=== PATIENT | female | born 1965 | race Caucasian/White ===

== ENCOUNTER 2020-09-07 23:34 | Emergency (ER) | payer OTHER, SELFPAY ==
[2020-09-07 23:41] VITALS: BP 126/74; BP 134/71; PULSE 66; RESP 18; TEMP 36.6; O2SAT 98; BMI 65.6
[2020-09-07 23:56] VITALS: BP 111/52; PULSE 64; RESP 16; O2SAT 97
[2020-09-08] VITALS: BP 117/70; PULSE 61; RESP 17; TEMP 37; O2SAT 99
--- NOTE | 2020-09-08 | CT_ITS ---
EXAMINATION: CT ABDOMEN AND PELVIS WITHOUT CONTRAST CLINICAL INFORMATION: Abdominal pain made COMPARISON: None TECHNIQUE: Multidetector volumetric imaging was performed from the superior aspect of the liver through the pubic symphysis. Sagittal and coronal reformatted images were obtained on the technologist's workstation. This CT examination was performed using dose optimization techniques as appropriate, variously including the following: *Automated exposure control *Adjustment of mA and/or kV according to patient size (this includes techniques or standardized protocols for targeted exams where dose is matched to indication/reason for exam; i.e. extremities or head) *Use of iterative reconstruction technique DLP: 757 mGy-cm FINDINGS: LUNG BASES: The visualized lung bases are unremarkable. Small amount of fluid in the distal esophagus which is mildly dilated LIVER, GALLBLADDER, AND BILIARY TREE: The liver is normal in size, shape, and attenuation. No focal hepatic lesion or biliary ductal dilatation is present. Status post cholecystectomy PANCREAS: Unremarkable. SPLEEN: Unremarkable. ADRENAL GLANDS: Unremarkable. KIDNEYS AND URETERS: The kidneys are normal in size, shape, and attenuation. No hydronephrosis, hydroureter, or calculi seen. No perinephric stranding. BLADDER: Unremarkable. GASTROINTESTINAL TRACT: Gastric cuff device is present. Connecting tubing is somewhat redundant into the upper pelvis. The bowel pattern is nonobstructing. There is no free fluid. The appendix is normal. Cannot exclude some mild thickening of mucosa small bowel loops in the left mid-upper abdomen ABDOMINAL WALL: No significant hernia is appreciated. LYMPH NODES: Some mildly prominent mesenteric nodes in the left upper quadrant. This may be reflective of enteritis in the adjacent small bowel. VASCULAR: Unremarkable. PELVIC VISCERA: Unremarkable. OSSEOUS STRUCTURES: Unremarkable. IMPRESSION: Mildly prominent mesenteric nodes in left upper quadrant. May be reflective of enteritis in the proximal small bowel. The bowel pattern is however nonobstructing. There is no free fluid.
--- NOTE | 2020-09-08 | ECG_ITS ---
Test Reason : ABD PAIN Blood Pressure : / mmHG Vent. Rate : 067 BPM Atrial Rate : 067 BPM P-R Int : 146 ms QRS Dur : 084 ms QT Int : 422 ms P-R-T Axes : 062 063 042 degrees QTc Int : 445 ms Normal sinus rhythm Cannot rule out Anterior infarct (cited on or before 11-JUL-2015) Abnormal ECG When compared with ECG of 11-JUL-2015 10:22, No significant change was found Referred By: Paul Gomez Electronically Signed By:KATHERYN TOUSSAINT MD
[2020-09-08] MEDS: ondansetron HCL 4 MG/2 ML VIAL IVPUSH ×2 (00:12→01:46)
[2020-09-08] MEDS: Famotidine/PF 20 MG/2 ML VIAL IVPUSH (00:12)
[2020-09-08 00:13] VITALS: RESP 18
[2020-09-08] MEDS: Morphine Sulfate 4 MG/ML CARTRIDGE IVPUSH (00:13)
[2020-09-08] MEDS: 0.9 % Sodium Chloride 1,000 ML 999 ML IVCONT (00:14)
[2020-09-08 00:42] LABS: MANUAL DIFF FLAG NO
[2020-09-08 00:46] LABS: Basophils Absolute Auto 0.1 X10*3/uL (0.0-0.2); Basophils Percent Auto 0.8 % (0-2); Eosinophils Absolute Auto 0.1 X10*3/uL (0.0-0.4); Hematocrit 39.5 % (37-47); Imm Gran Abs Auto 0.04 X10*3/uL (0.00-0.03); Imm Gran Pct Auto 0.6 % (0.0-0.4); Lymphocytes Absolute Auto 2.5 X10*3/uL (1.2-4.9); Lymphocytes Percent Auto 37.3 % (20-40); Mean Corpuscular HGB Conc 32.9 g/dl (31.0-35.0); Mean Corpuscular Hemoglobin 30.4 pg (27.0-33.0); Mean Corpuscular Volume 92.5 fL (80-98); Mean Platelet Volume 9.8 fL (9.4-12.3); Monocytes Absolute Auto 0.4 X10*3/uL (0.1-1.2); Monocytes Percent Auto 6.5 % (2-11); Neutrophils Absolute Auto 3.5 X10*3/uL (2.0-8.3); Neutrophils Percent Auto 52.8 % (45-73); Platelet Count 187 X10*3/uL (160-400); Red Blood Count 4.27 X10*6/uL (4.20-5.50); White Blood Count 6.6 X10*3/uL (4.8-10.8)
[2020-09-08] MEDS: Lidocaine HCl Viscous 2 % 15 ML SOLUTION MUCOUS MEM (00:49)
[2020-09-08] MEDS: Magnesium Hydrox/Alum Hydrox 30 ML ORAL.SUSP PO (00:49)
[2020-09-08 01:26] LABS: Troponin-I High Sensitivity < 3.5 ng/L (<3.5-17.0)
[2020-09-08] MEDS: Ketorolac Tromethamine 30 MG/ML VIAL IVPUSH (01:45)
[2020-09-08] MEDS: PHENobarb/Hyoscy/Atropine/Scop 10 ML ELIXIR PO (01:46)
[2020-09-08 01:47] LABS: Alanine Aminotransferase 29 U/L (0-31); Albumin Level 3.8 g/dL (3.5-5.0); Alkaline Phosphatase 54 U/L (39-117); Anion Gap 10 (12-20); Aspartate Amino Transferase 58 U/L (5-31); Bilirubin Direct 0.2 mg/dL (0.0-0.5); Bilirubin Total 0.4 mg/dL (0.0-1.0); Blood Urea Nitrogen 17 mg/dL (9-16); Calcium 9.1 mg/dL (8.4-10.2); Carbon Dioxide 27 mmol/L (22-29); Chloride 107 mmol/L (96-108); Creatinine Clr Calc Pharmacy 153.2; Estimated Glomerular Filt Rate > 60; Glucose Random 101 mg/dL (60-115); Lipase 19 U/L (8-78); Potassium 4.2 mmol/l (3.3-5.1); Sodium 140 mmol/L (135-145); Total Protein 5.9 g/dL (6.5-8.0)
--- NOTE | 2020-09-08 02:04 | ED.ABDPAIN ---
HPI - Abdominal Pain General Chief Complaint: Abdominal Pain Stated Complaint: SUDDEN ONSET ABD PAIN Time Seen by Provider: 09/07/20 23:40 Source: patient and EMS Mode of arrival: EMS History of Present Illness HPI narrative: mid abdominal pain that started today. Mild nausea without vomiting no diarrhea. No fevers no chills. Patient denies trauma nonradiating epigastric area MD elicited complaint: abdominal pain Onset (ago): hour(s) ( 2 hours) Pain Consistency: constant Severity: moderate Pain scale (0-10): 5 Related Data Patient : No Previous Rx's Medication Instructions Recorded esomeprazole magnesium [Nexium] 40 mg PO DAILY #30 cap 09/08/20 ketorolac 10 mg PO Q8H PRN #20 tab 09/08/20 ondansetron HCl [Zofran] 4 mg PO Q8H PRN #20 tab 09/08/20 tramadol 50 mg PO BID PRN #10 tab 09/08/20 Allergies Allergy/AdvReac Type Severity Reaction Status Date / Time No Known Allergies Allergy Unverified 08/18/20 15:26 Review of Systems Review of Systems Yes all other systems are reviewed and are negative Comments: Constitutional : No Weight loss, No Fever, No Chills, No Night Sweats, No Fatigue, No Malaise ENT/Mouth : No Hearing loss, No Ear Pain, No Nasal Congestion, No Sinus Pain, No Hoarseness, No sore throat, No Rhinorrhea, No Swallowing Difficulty Eyes: No Eye Pain, No Swelling, No Redness, No Foreign Body, No Discharge, No Vision Changes Cardiovascular : No Chest Pain, No SOB, No Dyspnea on Exertion, No Orthopnea, No Edema, No Palpitations Respiratory : No Cough, No Sputum, No Wheezing, No Smoke Exposure, No Dyspnea Gastrointestinal : positive Nausea, No Vomiting, No Diarrhea, No Constipation, positive abdominal Pain, No Hematochezia, No Melena Genitourinary : no irregular bleeding, No Dysuria, No Urinary Frequency, No Hematuria, No Urinary Incontinence, No Urgency, No Flank Pain, No Urinary Flow Changes, No Hesitancy Musculoskeletal : No joint pain, No Myalgias, No Joint Swelling Skin : No Skin Lesions, No rash Neuro : No Weakness, No Numbness, No Paresthesias, No Loss of Consciousness, No Dizziness, No Headache Psych : No Anxiety/Panic, No Depression, No SI/HI/AH/VH, No Social Issues, Heme/Lymph: No Bruising, No Bleeding,No Lymphadenopathy Endocrine : No Polyuria, No Polydipsia, No Temperature Intolerance Physical Exam Vital Signs and I&O and Narrative: Vital Signs and I&O: Vital Signs Temp 98.6 F 09/08/20 00:00 Pulse 62 09/08/20 02:06 Resp 18 09/08/20 02:06 BP 113/62 09/08/20 02:06 Pulse Ox 98 09/08/20 02:06 Intake & Output 09/07/20 09/07/20 09/08/20 06:59 18:59 06:59 Intake Total 1000 / 1000 Balance 1000 / 1000 Weight 190 kg Intake: Intake, IV Amoun t 1000 / 1000 0.9 % Sodium C hloride 1,000 ml 1000 / 1000 @ 999 mls/hr I VCONT .Q1H1M SRUTHI Rx#:[id number] Body Mass Index 65.6 reviewed Const: Other: Appearance: Alert. Oriented X3. No acute distress. Eyes: Pupils equal, round and reactive to light. ENT: Pharynx normal. Neck: Normal inspection. Neck supple. CVS: Normal heart rate and rhythm. Pulses normal. Respiratory: No respiratory distress. Breath sounds normal. Abdomen: Soft and tenderness to left upper and mid. no rigidity no rebound Skin: Skin warm and dry. Normal skin color. Normal skin turgor. Extremities: No lower extremity edema. No lower extremity edema. Neuro: Oriented X 3. No motor deficit. No sensory deficit. General: healthy appearing Course Course Course Narrative: multiple re-examined were done while the patient has been emergency department. Re-examine the abdomen at discharge shows no signs of peritonitis. Tolerating p.o. intake. I discussed with patient I doubt this is acute coronary syndrome. CT scan shows enteritis. Patient aware of discharge instructions follow-up and reasons to return to the emergency department MDM - Abdominal Pain MDM Narrative Medical decision making narrative: 54-year-old female, troponin negative EKG negative CT scan showing enteritis tolerating p.o. intake no signs of peritonitis with discharge Lab Data Attestation: I reviewed the patient's lab results. Result diagrams: 09/08/20 00:35 09/08/20 01:11 Labs: Lab Results 09/08/20 09/08/20 09/08/20 Range/Units 00:35 00:35 00:35 WBC 6.6 (4.8-10.8) X10*3/uL RBC 4.27 (4.20-5.50) X10*6/uL Hgb 13.0 (12.0-16.0) g/dl Hct 39.5 (37-47) % MCV 92.5 (80-98) fL MCH 30.4 (27.0-33.0) pg MCHC 32.9 (31.0-35.0) g/dl RDW 12.0 (11.0-16.0) % Plt Count 187 (160-400) X10*3/uL MPV 9.8 (9.4-12.3) fL Immature Gran % (Auto) 0.6 H (0.0-0.4) % Neut % (Auto) 52.8 (45-73) % Lymph % (Auto) 37.3 (20-40) % Wheeler % (Auto) 6.5 (2-11) % Eos % (Auto) 2.0 (0-4) % Baso % (Auto) 0.8 (0-2) % Lymph # (Auto) 2.5 (1.2-4.9) X10*3/uL Wheeler # (Auto) 0.4 (0.1-1.2) X10*3/uL Eos # (Auto) 0.1 (0.0-0.4) X10*3/uL Baso # (Auto) 0.1 (0.0-0.2) X10*3/uL Abs Immat Gran (auto) 0.04 H (0.00-0.03) X10*3/uL Absolute Neuts (auto) 3.5 (2.0-8.3) X10*3/uL Absolute Nucleated RBC 0.000 (0.0-0.012) X10*3/uL Nucleated RBC % (auto) 0.0 (0.0-0.2) /100WBC Sodium Cancelled Potassium Cancelled Chloride Cancelled Carbon Dioxide Cancelled Anion Gap Cancelled BUN Cancelled Creatinine Cancelled Estim Creat Clear Calc Cancelled Estimated GFR Cancelled Random Glucose Cancelled Calcium Cancelled Total Bilirubin Cancelled Direct Bilirubin Cancelled AST Cancelled ALT Cancelled Alkaline Phosphatase Cancelled Troponin I High Sens < 3.5 (<3.5-17.0) ng/L Total Protein Cancelled Albumin Cancelled Lipase Cancelled 09/08/20 Range/Units 01:11 WBC (4.8-10.8) X10*3/uL RBC (4.20-5.50) X10*6/uL Hgb (12.0-16.0) g/dl Hct (37-47) % MCV (80-98) fL MCH (27.0-33.0) pg MCHC (31.0-35.0) g/dl RDW (11.0-16.0) % Plt Count (160-400) X10*3/uL MPV (9.4-12.3) fL Immature Gran % (Auto) (0.0-0.4) % Neut % (Auto) (45-73) % Lymph % (Auto) (20-40) % Wheeler % (Auto) (2-11) % Eos % (Auto) (0-4) % Baso % (Auto) (0-2) % Lymph # (Auto) (1.2-4.9) X10*3/uL Wheeler # (Auto) (0.1-1.2) X10*3/uL Eos # (Auto) (0.0-0.4) X10*3/uL Baso # (Auto) (0.0-0.2) X10*3/uL Abs Immat Gran (auto) (0.00-0.03) X10*3/uL Absolute Neuts (auto) (2.0-8.3) X10*3/uL Absolute Nucleated RBC (0.0-0.012) X10*3/uL Nucleated RBC % (auto) (0.0-0.2) /100WBC Sodium 140 Potassium 4.2 Chloride 107 Carbon Dioxide 27 Anion Gap 10 L BUN 17 H Creatinine 0.74 Estim Creat Clear Calc 153.2 Estimated GFR > 60 Random Glucose 101 Calcium 9.1 Total Bilirubin 0.4 Direct Bilirubin 0.2 AST 58 H ALT 29 Alkaline Phosphatase 54 Troponin I High Sens (<3.5-17.0) ng/L Total Protein 5.9 L Albumin 3.8 Lipase 19 ECG Data Attestation: I personally reviewed and interpreted this ECG as follows: Interpretation: 67 beats per minute. Normal sinus rhythm. Normal axis. No ST T changes Discharge Plan Discharge Clinical Impression: Enteritis Patient Disposition: Home, Self-Care Instructions: Enteritis (ED) Additional Instructions: Thank you for visiting the emergency department today. If your symptoms worsen or do not resolve completely please return to the emergency department immediately or call 911. if he have any questions please call your primary care physician Prescriptions: New ondansetron HCl [Zofran] 4 mg tablet 4 mg PO Q8H PRN (Reason: nausea and vomiting) Qty: 20 RF: 0 tramadol 50 mg tablet 50 mg PO BID PRN (Reason: pain) Qty: 10 RF: 0 esomeprazole magnesium [Nexium] 40 mg capsule,delayed release(DR/EC) 40 mg PO DAILY Qty: 30 RF: 0 ketorolac 10 mg tablet 10 mg PO Q8H PRN (Reason: pain) Qty: 20 RF: 0 Referrals: [facility] [Provider Group] - 2 days Interventions: ED Discharge Assessment Last Done: 09/08/20 02:33 Discharge Date/Time: 09/08/20 02:34 [facility] Past Medical History Medical History Anxiety GERD (gastroesophageal reflux disease) Surgical History (Updated 09/08/20 @ 02:06 by Paul Gomez DO) H/O bariatric surgery Social History Social History Smoking Status: Current every day smoker Use of substances other than those prescribed or required for medical reasons: No Advance Directives: No Advance Directives Information Provided: No
[2020-09-08 02:06] VITALS: BP 113/62; PULSE 62; RESP 18; O2SAT 98
== END 2020-09-08 02:34 | disposition home or self-care (01) ==
PROVIDERS: Emergency Provider Emergency Medicine; PCP Hospitalist
DX: K52.9 Noninfective gastroenteritis and colitis, unspecified (principal); K21.9 Gastro-esophageal reflux disease without esophagitis; Z98.84 Bariatric surgery status; Z79.899 Other long term (current) drug therapy
CPT/HCPCS: 36415; 74176; 80048; 80076; 83690; 84484; 85025; 93005; 96361; 96374; 96375; 96376; 99284; J2270; J2405

== ENCOUNTER 2024-08-27 08:33 | Outpatient (AMB) | payer OTHER, SELFPAY ==
[2024-08-27 08:38] VITALS: BP 92/60; PULSE 78; O2SAT 96; BMI 34.2
--- NOTE | 2024-08-27 08:38 | A.OFFVIS_ITS ---
Vital Signs 3 08/27/24 08:38 Height 5 ft 6.5 in Weight 214 lb 15.211 oz BMI 34.2 BP 92/60 Blood Pressure Location Lt brachial Position Sitting Pulse 78 Pulse Source Pulse Oximeter Pulse Oximetry (%) 96 Oxygen Delivery Method Room Air Intake Visit Reasons: Abnormal CT Scan Email Developer Required: No Allergies No Known Allergies Allergy (Unverified 08/27/24 08:42) HPI Comments Details: The patient is here for pulmonary evaluation. The patient is a 58 year woman with an abnormal CT scan of the chest. The patient started participating in the lung cancer screening program back in 2020 due to her high risk for cancer because her smoking habits. She is however cut down significantly. She did quit although she states that sometimes she does cheat. We talked about importance about that in quitting altogether. We did review her CT scans of the chest. Apparently back in 2020 she did have areas of tree-in-bud bronchiolitis in the left upper lobe in after that she had a CT scan demonstrating some pneumonitis primarily in the anterior part of her chest bilaterally right more than left. Also demonstrating significant hiatal hernia and she does have a gastric band. Subsequently after that she had another CT scan with other areas involved nodular densities. More recently in July she had a repeat CT scan demonstrating new pulmonary nodules in the right middle lobe area in addition to the lingular area. The nodules are consistent with bronchiolitis. The ground- glass opacities have improved though she still has some areas that are suspicious. The patient also has again the significant amount of dilation of the esophagus concerning about the effects of the lap band. She did follow-up with the surgeon who placed it. It is currently not being used. However, it still looks like there is limited amount of movement. She has a difficulty swallowing. The patient is on her belly and therefore make sense that she is probably having some microaspiration to the lungs aspiration pneumonitis and aspiration bronchiolitis. Will also do additional blood work to assess further etiologies for the bronchiolitis in the pneumonitis but at this point is very apparent that is related to the lap band. The patient will undergo a barium swallow will see the degree of severity. She may need to have the lap band removed because is resulting in worsening respiratory issues at this time. In the meantime the CT scan was read as rads 3. She does participate in the lung cancer screening program at [facility] and she is scheduled to have a repeat CT scan 6 months from the last 1. [facility] Medical History (Updated 08/27/24 @ 08:56 by Scotty Moss MD) Aspiration pneumonitis Hiatal hernia Pulmonary nodules Pneumonitis GERD (gastroesophageal reflux disease) Anxiety Surgical History (Updated 09/08/20 @ 02:06 by Paul Gomez DO) H/O bariatric surgery Social History (Updated 08/27/24 @ 08:43 by Radha Watson Jodi) Patient Tobacco Use Status: Former Tobacco user Review of Systems Const Denies fever(s) ENT Reports dysphagia and Denies nasal congestion Card Denies chest pain Resp Reports change in phlegm color, Reports chest congestion and Reports cough GI Reports dysphagia, Reports early satiety, Reports dyspepsia, Reports heartburn and Reports vomiting Musc Reports no additional complaints Skin/Breast Denies rash Neuro Reports no additional complaints Jayesh/Lymph Reports no additional complaints Physical Exam Vital Signs: Last Vital Signs Pulse 78 08/27/24 08:38 BP 92/60 08/27/24 08:38 Pulse Ox 96 08/27/24 08:38 Oxygen Delivery Method Room Air 08/27/24 08:38 BMI result Body Mass Index 34.2 Const General: comfortable HEENT Head: Yes normocephalic Neck Neck: Yes supple Chest Chest palpation & inspection: normal inspection of the chest Resp Effort & Inspection: normal respiratory effort and prolonged expiratory phase Auscultation: diminished lung sounds Cardio Heart sounds: S1 normal heart sound present and S2 normal heart sound present GI Palpation (GI): Soft to palpation Skin General skin exam: no rashes or lesions noted Extrem General: Yes no clubbing, cyanosis or edema Results Reviewed Results Reviewed: personally reviewed CT chest from 07/2024,12/2023,2022 and 2020 with waxing and waning GGO and tree in bud. dilation of the distal esophagus with air fluid level due to lab ban obstruction. Assessment & Plan Assessment & Plan (1) Pneumonitis: Code(s): J98.4 - Other disorders of lung Category: Medical (2) Pulmonary nodules: Code(s): R91.8 - Other nonspecific abnormal finding of lung field Category: Medical (3) Hiatal hernia: Code(s): K44.9 - Diaphragmatic hernia without obstruction or gangrene Category: Medical (4) Aspiration pneumonitis: Code(s): J69.0 - Pneumonitis due to inhalation of food and vomit Category: Medical Plan bloodwork ODILIA as needed reflux diet sleep with HOB elevated with risers barium swallow sputum culture F/U 6-8 weeks Orders: Orders 2 Complete Blood Count Auto Diff Today J98.4 - Other disorders of lung, R91.8 - Other nonspecific abnormal finding of lung field Basic Metabolic Panel Today J98.4 - Other disorders of lung, R91.8 - Other nonspecific abnormal finding of lung field Immunoglobulins,IgG IgA IgM Today J98.4 - Other disorders of lung, R91.8 - Other nonspecific abnormal finding of lung field Acid-fast Culture + Smear Today J98.4 - Other disorders of lung, R91.8 - Other nonspecific abnormal finding of lung field Immunoglobulin E Today J98.4 - Other disorders of lung, R91.8 - Other nonspecific abnormal finding of lung field Hypersensitive Pneumonitis Prf Today J98.4 - Other disorders of lung, R91.8 - Other nonspecific abnormal finding of lung field Sputum Cult + Gram stain Today J98.4 - Other disorders of lung, R91.8 - Other nonspecific abnormal finding of lung field FL barium swallow Today J69.0 - Pneumonitis due to inhalation of food and vomit, J98.4 - Other disorders of lung, K21.9 - Gastro-esophageal reflux disease without esophagitis, R91.8 - Other nonspecific abnormal finding of lung field Medications: New 2 albuterol sulfate 90 mcg/actuation 2 inhalations inhalation Q6H PRN 18 grams 12RF shortness of breath or wheezing 30 days J44.9 - Chronic obstructive pulmonary disease, unspecified Coding Level of Care Code New Pt Level 5 (91021) Diagnoses Pneumonitis J98.4 Pulmonary nodules R91.8 Hiatal hernia K44.9 Aspiration pneumonitis J69.0 Time Spent (min) 60
== END 2024-08-27 09:07 | disposition home or self-care (01) ==
PROVIDERS: PCP Hospitalist; Visit Provider Hospitalist
DX: J69.0 Pneumonitis due to inhalation of food and vomit (principal); R91.8 Other nonspecific abnormal finding of lung field; J98.4 Other disorders of lung; K44.9 Diaphragmatic hernia without obstruction or gangrene
CPT/HCPCS: 99205

== ENCOUNTER → 2024-08-27 08:33 | Outpatient (BNVA) | payer OTHER, SELFPAY | PROVIDERS: PCP Hospitalist; Visit Provider Hospitalist ==

== ENCOUNTER 2024-11-17 08:15 | Outpatient (REF) | payer OTHER, SELFPAY ==
--- NOTE | ~2024-11-17 | FL_ITS ---
EXAMINATION: XR FLUOROSCOPY UPPER GI WITH AIR CLINICAL INFORMATION: Reflux. History of lap band placement. COMPARISON: None TECHNIQUE: Fluoroscopic air contrast upper GI examination was performed utilizing standard techniques with thin and thick barium and effervescent granules. Numerous spot images were obtained. FINDINGS: Lateral cine images of the oropharynx and hypopharynx demonstrate normal swallow mechanism with normal epiglottic inversion and soft palate elevation. No tracheal penetration, glottic or subglottic aspiration identified. No nasopharyngeal reflux present. Hypopharyngeal structures appear normal without evidence of mass or diverticulum. There was no significant cricopharyngeal achalasia. Dual and single contrast images of the esophagus demonstrate a very patulous esophagus with a normal contour. The esophageal mucosa has a mild granular appearance suggestive of esophagitis. No evidence of stricture, mass, or ulcerations identified. Esophageal peristalsis was normal. A small type I hiatal hernia is present. No significant gastroesophageal reflux was seen during the course of the examination and on reflux views. Dual contrast and single contrast images of the stomach demonstrated a normal contour. A lap band is present, in which the phi angle measures 52 degrees. A high-grade stricture is present in the fundus of the stomach is present due to the presence of the band. The gastric rugal folds have a thickened appearance, suggestive of gastritis. No masses or ulcerations are seen. Contrast freely passed into the gastric antrum and duodenal bulb without delay. Single and air-contrast images of the duodenal bulb demonstrate no abnormality. The duodenal sweep has a normal appearance, course, and mucosal fold appearance. The imaged proximal jejunum has a normal fold pattern and caliber. FLUOROSCOPY TIME: 5 minutes 13 seconds Number of Spot Images: 16 Number of Cine: 13 DOSE AREA PRODUCT: 2436 uGy-m2 (microgray-meter squared) FL/FL barium swallow with air IMPRESSION: 1. Very patulous esophagus 2. Mild granular appearance of the esophageal mucosa, suggestive of esophagitis. 3. Small type I hiatal hernia. 4. Status post placement of a lap band. There is no evidence of slippage of the band. There is a high grade stricture present in the fundus of the stomach due to the presence of the lap band. 5. Thickened appearance of the gastric rugal folds, suggestive of gastritis. This procedure was performed by Edwar Vega PA-C, and supervised by Dr. Mcclellan Electronically signed by: Olaf Mcclellan MD 11/18/2024 04:31 PM [facility]
== END 2024-11-17 08:16 | disposition home or self-care (01) ==
LOC: HO.XRAY 08:15
PROVIDERS: PCP Hospitalist; Visit Provider Hospitalist
DX: K21.9 Gastro-esophageal reflux disease without esophagitis (principal); J69.0 Pneumonitis due to inhalation of food and vomit; J98.4 Other disorders of lung
CPT/HCPCS: 74221

== ENCOUNTER → 2024-11-17 08:17 | Outpatient (BNV) | payer OTHER, SELFPAY | PROVIDERS: PCP Hospitalist; Visit Provider Physician Assistant Surgical | DX: K21.9 Gastro-esophageal reflux disease without esophagitis (principal); Z98.84 Bariatric surgery status | CPT/HCPCS: 74221 ==

== ENCOUNTER 2024-11-20 09:07 | Outpatient (AMB) | payer OTHER, SELFPAY ==
--- NOTE | 2024-11-20 09:11 | A.OFFVIS_ITS ---
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 The patient started participating in the lung cancer screening program back in 2020 due to her high risk for cancer because her smoking habits. She is however cut down significantly. She did quit although she states that sometimes she does cheat. We talked about importance about that in quitting altogether. We did review her CT scans of the chest. Apparently back in 2020 she did have areas of tree-in-bud bronchiolitis in the left upper lobe in after that she had a CT scan demonstrating some pneumonitis primarily in the anterior part of her chest bilaterally right more than left. Also demonstrating significant hiatal hernia and she does have a gastric band. Subsequently after that she had another CT scan with other areas involved nodular densities. More recently in July she had a repeat CT scan demonstrating new pulmonary nodules in the right middle lobe area in addition to the lingular area. The nodules are consistent with bronchiolitis. The ground-glass opacities have improved though she still has some areas that are suspicious. The patient also has again the significant amount of dilation of the esophagus concerning about the effects of the lap band. She did follow-up with the surgeon who placed it. It is currently not being used. However, it still looks like there is limited amount of movement. She has a difficulty swallowing. The patient is on her belly and therefore make sense that she is probably having some microaspiration to the lungs aspiration pneumonitis and aspiration bronchiolitis. Will also do additional blood work to assess further etiologies for the bronchiolitis in the pneumonitis but at this point is very apparent that is related to the lap band. The patient will undergo a barium swallow will see the degree of severity. She may need to have the lap band removed because is resulting in worsening respiratory issues at this time. In the meantime the CT scan was read as rads 3. She does participate in the lung cancer screening program at [facility] and she is scheduled to have a repeat CT scan 6 months from the last 1. 11/20/2024 the patient is here for a pulmonary follow-up visit. Overall she is doing well. She is monitoring closely her reflux disease. The patient cough is improved. She had her barium swallow demonstrating significant disease due to the lap band. I suspicious that the pneumonitis in the bronchiolitis due to micro aspirations. The patient has been trying to get this lap band taken out. Now is resulting in significant disease. Will go ahead refer her to surgery so she can have further discussions about that. In the meantime she still smoking. She is smoking about 8-10 cigarettes a day. We did talk about smoking cessation. She is currently dealing with thyroid conditions so therefore will hold off any smoking cessation medications until her thyroid issues are resolved. Then she can call and I did recommend she start Chantix. She will let me know. In the meantime she is also needs to get blood work. She was not able to get a sputum culture. She needs to make sure she continues to sleep elevated. We did talk about adding risers to the head of the bed. Will follow- up in 6 months. If other issues arise she will call for an earlier assessment. [facility] Medical History (Updated 08/27/24 @ 08:56 by Scotty Moss MD) Aspiration pneumonitis Hiatal hernia Pulmonary nodules Pneumonitis GERD (gastroesophageal reflux disease) Anxiety Surgical History (Updated 11/20/24 @ 09:32 by Scotty Moss MD) Hx of laparoscopic gastric banding H/O bariatric surgery Social History Patient Tobacco Use Status: Former Tobacco user Review of Systems Const Denies fever(s) ENT Reports dysphagia and Denies nasal congestion Card Denies chest pain Resp Reports change in phlegm color, Reports chest congestion and Reports cough GI Reports dysphagia, Reports early satiety, Reports dyspepsia, Reports heartburn and Reports vomiting Musc Reports no additional complaints Skin/Breast Denies rash Neuro Reports no additional complaints Jayesh/Lymph Reports no additional complaints Physical Exam Vital Signs: Last Vital Signs Pulse 81 11/20/24 09:12 BP 90/62 11/20/24 09:12 Pulse Ox 100 11/20/24 09:12 Oxygen Delivery Method Room Air 11/20/24 09:12 BMI result Body Mass Index 33.1 Const General: comfortable HEENT Head: Yes normocephalic Neck Neck: Yes supple Chest Chest palpation & inspection: normal inspection of the chest Resp Effort & Inspection: normal respiratory effort and No prolonged expiratory phase Auscultation: diminished lung sounds Cardio Heart sounds: S1 normal heart sound present and S2 normal heart sound present GI Palpation (GI): Soft to palpation Skin General skin exam: no rashes or lesions noted Extrem General: Yes no clubbing, cyanosis or edema Assessment & Plan Assessment & Plan (1) Pneumonitis: Code(s): J98.4 - Other disorders of lung Category: Medical (2) Pulmonary nodules: Code(s): R91.8 - Other nonspecific abnormal finding of lung field Category: Medical (3) Hiatal hernia: Code(s): K44.9 - Diaphragmatic hernia without obstruction or gangrene Category: Medical (4) Aspiration pneumonitis: Code(s): J69.0 - Pneumonitis due to inhalation of food and vomit Category: Medical (5) Hx of laparoscopic gastric banding: Code(s): Z98.84 - Bariatric surgery status Category: Surgical Plan ODILIA as needed reflux diet sleep with HOB elevated with risers Surgery eval for removal of gastric band F/U 4-6 months Orders: Referrals Bariatric Surgery Referral J98.4 - Other disorders of lung, K44.9 - Diaphragmatic hernia without obstruction or gangrene, Z98.84 - Bariatric surgery status Coding Level of Care Code Est Pt Level 4 (43819) Diagnoses Pneumonitis J98.4 Pulmonary nodules R91.8 Hiatal hernia K44.9 Aspiration pneumonitis J69.0 Hx of laparoscopic gastric banding Z98.84 Time Spent (min) 17
[2024-11-20 09:12] VITALS: BP 90/62; PULSE 81; O2SAT 100; BMI 33.1
== END 2024-11-20 09:37 | disposition home or self-care (01) ==
PROVIDERS: PCP Hospitalist; Visit Provider Hospitalist
DX: J98.4 Other disorders of lung (principal); R91.8 Other nonspecific abnormal finding of lung field; K44.9 Diaphragmatic hernia without obstruction or gangrene; J69.0 Pneumonitis due to inhalation of food and vomit; Z98.84 Bariatric surgery status
CPT/HCPCS: 99214

== ENCOUNTER 2024-12-11 07:49 | Outpatient (AMB) | payer OTHER, SELFPAY ==
--- NOTE | 2024-12-11 07:56 | A.OFFVIS_ITS ---
VS Expanded 12/11/24 08:10 BP 117/67 Blood Pressure Location Rt brachial Blood Pressure Position Sitting Pulse 89 Pulse Source Pulse Oximeter Temp 97.9 F Temperature Source Temporal Artery Scan Pulse Oximetry 97 Oxygen Delivery Method Room Air Height 5 ft 6.5 in Weight 213 lb 6.4 oz BMI 33.9 Body Fat % 42.3 Body Fat Mass 90.2 Fat Free Mass 123.0 Visceral Fat Rating 2.0 Body Water % 41.0 Body Water Mass 87.4 Muscle Mass/Score 116.8 Basal Metabolic Rate/Score 1,697 Intake Visit Reasons: OV Hiatal Hernia- Dr. Moss Ref *SEE COMMENTS* Allergies No Known Allergies Allergy (Verified 12/11/24 12:39) Medication List - Last Reconciled 12/11/24 by Steve Hood MD albuterol sulfate 90 mcg/actuation 2 inhalations inhalation Q6H PRN 30 days clonazepam mg PO esomeprazole magnesium (Nexium) 40 mg PO DAILY levothyroxine 50 mcg PO DAILY HPI Comments Details: Was referred because of her history of the lap band. Complains of frequent vomiting (at least 4 days per week) of undigested food and heartburn. Heartburn has improved with Nexium. Also if she eats late, she develops regurgitation and some time will vomit through the nose. [facility] Medical History (Updated 12/11/24 @ 09:07 by Steve Hood MD) Aspiration pneumonitis Hiatal hernia Pulmonary nodules Pneumonitis GERD (gastroesophageal reflux disease) Anxiety Surgical History (Updated 12/11/24 @ 08:02 by Zuleyka Gomez CMA) Hx of colonoscopy Hx of bladder endoscopy Hx of section Hx of cholecystectomy Hx of laparoscopic gastric banding H/O bariatric surgery Family History (Updated 12/11/24 @ 08:06 by Zuleyka Gomez CMA) Mother Heart problem Father Diabetes Parkinsons Heart problem Daughter No problems noted. Son No problems noted. Daughter No problems noted. Social History (Updated 12/11/24 @ 08:06 by Zuleyka Gomez CMA) Alcohol intake: current Alcohol intake frequency: holidays/special occasions only Patient Tobacco Use Status: Current everyday Tobacco user Cigarettes Per Day: 10 Physical Exam Vital Signs: Last Vital Signs Temp 97.9 F 12/11/24 08:10 Pulse 89 12/11/24 08:10 BP 117/67 12/11/24 08:10 Pulse Ox 97 12/11/24 08:10 Oxygen Delivery Method Room Air 12/11/24 08:10 BMI result Body Mass Index 33.9 GI Inspection: Yes normal to inspection (Gynecoid body habitus), Yes incision (well healed) and Yes other (band port palpated at mid upper abdomen) Assessment & Plan Assessment & Plan (1) Gastric outlet obstruction: Code(s): K31.1 - Adult hypertrophic pyloric stenosis Category: Medical Plan: 1. We discussed in detail the etiology of her symptoms. The band is causing obstruction and this has created aspiration, vomiting, the hiatal hernia and the possibly the lung nodules. The plan is as follows: a) until your vacation please do: 2 Celebrate Rebuild protein shakes with TWO scoops in 8-12oz almond milk at 8-10am and 11-1pm, lunch at 2pm (5 forks of meat or fish and 5 forks of steamed broccoli or cauliflower) and 2 more Celebrate Rebuild protein shakes with one scoop each in 8oz almond milk at 4-6pm and 7- 9pm. b) during vacation, please replace the Celebrate Rebuild with the Isopure Infusions shake to 2 to 1 portions (i.e. 2 scoops of Rebuild = 1 scoop of Isopure), mixing it in water and not almond milk c) Send me weight measurements tomorrow and then weekly d) Strict liquid diet after return from vacation e) To be scheduled 1 week after the liquid diet for EGD to assess for band erosion . The possibility of biopsies was discussed. Patient needs to avoid use of NSAIDs and aspirin for 1 week prior to EGD. You must be on liquids only the day before your endoscopy. Risks of perforation and bleeding was discussed with the patient. This will be an outpatient procedure with IV sedation. f) Plan for lap band removal after the EGD is performed 2) Once the lap band is removed we will continue with the lifestyle program for further weight loss Orders: Orders TSH reflex Free T4 Today K31.1 - Adult hypertrophic pyloric stenosis Vitamin A Today K31.1 - Adult hypertrophic pyloric stenosis Prothrombin Time INR Today K31.1 - Adult hypertrophic pyloric stenosis Vitamin B1 Today K31.1 - Adult hypertrophic pyloric stenosis Vitamin B12 Today K31.1 - Adult hypertrophic pyloric stenosis C Reactive Protein Today K31.1 - Adult hypertrophic pyloric stenosis Vitamin D 25-OH Total Today K31.1 - Adult hypertrophic pyloric stenosis Complete Blood Count Auto Diff Today K31.1 - Adult hypertrophic pyloric stenosis Zinc Today K31.1 - Adult hypertrophic pyloric stenosis IRON PROFILE Today K31.1 - Adult hypertrophic pyloric stenosis Comprehensive Met. Panel Today K31.1 - Adult hypertrophic pyloric stenosis Hemoglobin A1c Today K31.1 - Adult hypertrophic pyloric stenosis Lipid Panel Today K31.1 - Adult hypertrophic pyloric stenosis Type and Screen Today K31.1 - Adult hypertrophic pyloric stenosis Partial Thromboplastin Time Today K31.1 - Adult hypertrophic pyloric stenosis Ferritin Today K31.1 - Adult hypertrophic pyloric stenosis Insulin Today K31.1 - Adult hypertrophic pyloric stenosis
[2024-12-11 08:10] VITALS: BP 117/67; PULSE 89; TEMP 36.6; O2SAT 97; BMI 33.9
== END 2024-12-11 12:57 | disposition home or self-care (01) ==
PROVIDERS: PCP Hospitalist; Visit Provider Surgery
DX: K31.1 Adult hypertrophic pyloric stenosis (principal)
CPT/HCPCS: 99204

== ENCOUNTER 2024-12-12 07:53 | Outpatient (REF) | payer OTHER, SELFPAY ==
[2024-12-12 08:18] LABS: MANUAL DIFF FLAG NO
[2024-12-12 08:35] LABS: Basophils Absolute Auto 0.1 X10*3/uL (0.0-0.2); Basophils Percent Auto 1.6 % (0-2); Eosinophils Absolute Auto 0.1 X10*3/uL (0.0-0.4); Eosinophils Percent Auto 2.5 % (0-4); Hematocrit 40.4 % (37.0-47.0); Hemoglobin 13.8 g/dl (12.0-16.0); Imm Gran Abs Auto 0.01 X10*3/uL (0.00-0.03); Imm Gran Pct Auto 0.2 % (0.0-0.4); Lymphocytes Absolute Auto 2.2 X10*3/uL (1.2-4.9); Lymphocytes Percent Auto 45.5 % (20-40); Mean Corpuscular HGB Conc 34.2 g/dl (31.0-35.0); Mean Corpuscular Volume 90.8 fL (80.0-98.0); Mean Platelet Volume 9.4 fL (9.4-12.3); Monocytes Absolute Auto 0.4 X10*3/uL (0.1-1.2); Monocytes Percent Auto 7.2 % (2-11); Neutrophils Absolute Auto 2.1 x10*3/uL (2.0-8.3); Platelet Count 225 X10*3/uL (160-400); Red Blood Count 4.45 X10*6/uL (4.20-5.50); Red Cell Distribution Width 11.9 % (11.0-16.0); White Blood Count 4.9 X10*3/uL (4.8-10.8)
[2024-12-12 08:42] LABS: INTERNATIONAL NORM RATIO 0.8 (0.9-1.1); Prothrombin Time 9.2 SEC (10.9-12.4)
[2024-12-12 08:44] LABS: Estimated Average Glucose 105 mg/dL; Hemoglobin A1C 125.3419 umol/L; Hemoglobin A1c % 5.3 % (<6.0); Total Hemoglobin (HGBA1C) 3644.0418 umol/L
[2024-12-12 08:45] LABS: Partial Thromboplastin Time 27.2 SEC (26.0-36.8)
[2024-12-12 09:14] LABS: Alanine Aminotransferase 17 U/L (0-31); Alkaline Phosphatase 77 U/L (39-117); Anion Gap 8 (12-20); Aspartate Amino Transferase 22 U/L (5-31); Bilirubin Total 0.3 mg/dL (0.0-1.0); Blood Urea Nitrogen 18 mg/dL (9-16); C Reactive Protein 0.21 mg/dL (< or = 0.50); Calcium 8.3 mg/dL (8.4-10.2); Carbon Dioxide 27 mmol/L (22-29); Chloride 111 mmol/L (96-108); Cholesterol 205 mg/dL (<200); Estimated Glomerular Filt Rate > 60; Glucose Random 92 mg/dL (60-115); HDL Cholesterol 71 mg/dL (>40); Iron 53 mcg/dL (30-160); LDL Cholesterol Calculated 121 mg/dL (<100); Percent Iron Saturation 22 % (15-50); Potassium 4.2 mmol/L (3.3-5.1); Sodium 142 mmol/L (135-145); Total Iron Binding Capacity 241 mcg/dL (228-428); Total Protein 6.8 g/dL (6.5-8.0); Triglycerides 69 mg/dL (<150); Unsaturated Iron Binding 188 ug/dL
[2024-12-12 09:37] LABS: Vitamin B12 538 pg/mL (200-900)
[2024-12-12 09:42] LABS: Ferritin 41 ng/mL (10-250); TSH reflex Free T4 6.62 uIU/mL (0.32-4.0); Vitamin D 25-OH Total 28.9 ng/mL (>30)
[2024-12-12 10:12] LABS: Insulin 7 uU/mL (2-29)
[2024-12-12 11:32] LABS: Free T4 (Free Thyroxine) 1.12 ng/dL (0.71-1.85)
[2024-12-15 17:49] LABS: Zinc 65 mcg/dL (60-130)
[2024-12-16 15:48] LABS: Vitamin A 46 mcg/dL (38-98)
[2024-12-18 06:24] LABS: Vitamin B1 9 nmol/L (8-30)
== END 2024-12-12 07:54 | disposition home or self-care (01) ==
LOC: HO.LAB 07:53
PROVIDERS: PCP Internal Medicine; Visit Provider Surgery
DX: K31.1 Adult hypertrophic pyloric stenosis (principal); Z13.1 Encounter for screening for diabetes mellitus; Z13.29 Encounter for screening for other suspected endocrine disorder; Z13.0 Encounter for screening for diseases of the blood and blood-forming organs and certain disorders involving the immune mechanism
CPT/HCPCS: 36415; 80053; 80061; 82306; 82607; 82728; 83036; 83525; 83540; 84425; 84439; 84443; 84590; 84630; 85025; 85610; 85730; 86140; 86850; 86900; 86901

== ENCOUNTER → 2024-12-14 08:09 | Outpatient (REF) | payer OTHER, SELFPAY ==
--- NOTE | 2024-12-14 08:14 | ECG_ITS ---
Test Reason : Pre Op Blood Pressure : */* mmHG Vent. Rate : 76 BPM Atrial Rate : 76 BPM P-R Int : 132 ms QRS Dur : 84 ms QT Int : 408 ms P-R-T Axes : 63 62 45 degrees QTcB Int : 459 ms Normal sinus rhythm Normal ECG When compared with ECG of 08-Sep-2020 00:29, No significant change was found Referred By: Steve Hood Electronically Signed By: Som Burch
== END ==
LOC: HO.CARD 08:09
PROVIDERS: PCP Internal Medicine; Referring Provider Nurse Practitioner Adult Health; Visit Provider Surgery
DX: Z01.818 Encounter for other preprocedural examination (principal)
CPT/HCPCS: 93005

== ENCOUNTER → 2024-12-14 08:14 | Outpatient (BNV) | payer OTHER, SELFPAY | PROVIDERS: PCP Internal Medicine; Referring Provider Nurse Practitioner Adult Health; Visit Provider Internal Medicine Cardiovascular Disease | DX: Z01.818 Encounter for other preprocedural examination (principal) | CPT/HCPCS: 93010 ==

== ENCOUNTER 2024-12-31 14:45 | Outpatient (AMB) | payer OTHER, SELFPAY ==
--- NOTE | 2024-12-31 15:11 | A.OFFVIS_ITS ---
VS Expanded 12/31/24 16:02 Height 5 ft 6.5 in Weight 207 lb 6 oz BMI 33.0 Body Fat % 28.1 Body Fat Mass 58.3 Fat Free Mass 149.2 Visceral Fat Rating 9 Body Water % 49.3 Body Water Mass 102.3 Basal Metabolic Rate/Score 1,823 Intake Visit Reasons: TV Pre Op LSG 01/14/25 Allergies No Known Allergies Allergy (Verified 12/31/24 15:12) Medication List - Last Reconciled 12/31/24 by Steve Hood MD albuterol sulfate 90 mcg/actuation 2 inhalations inhalation Q6H PRN 30 days cholecalciferol (vitamin D3) 125 mcg PO DAILY clonazepam mg PO esomeprazole magnesium (Nexium) 40 mg PO DAILY levothyroxine 50 mcg PO DAILY ondansetron 4 mg PO Q12H HPI HPI TV Pre Op LSG 01/14/25: Details: Start time: 3pm, End time: 3.20pm I spent 15 minutes discussing with the patient and 5 minutes to prepare my note HPI Comments Details: The patient has persistent GERD and vomiting with the lap band She has now engaged in a meal and exercise plan with me with an overall weight loss of 6.4lbs or 3% TBWL PFSH Medical History (Updated 12/31/24 @ 16:07 by Steve Hood MD) Aspiration pneumonitis Hiatal hernia Pulmonary nodules Pneumonitis GERD (gastroesophageal reflux disease) Anxiety Surgical History (Updated 12/11/24 @ 08:02 by Zuleyka Gomez CMA) Hx of colonoscopy Hx of bladder endoscopy Hx of section Hx of cholecystectomy Hx of laparoscopic gastric banding H/O bariatric surgery Family History (Updated 12/11/24 @ 08:06 by Zuleyka Gomez CMA) Mother Heart problem Father Diabetes Parkinsons Heart problem Daughter No problems noted. Son No problems noted. Daughter No problems noted. Social History (Updated 12/11/24 @ 08:06 by Zuleyka Gomez CMA) Alcohol intake: current Alcohol intake frequency: holidays/special occasions only Patient Tobacco Use Status: Current everyday Tobacco user Cigarettes Per Day: 10 Physical Exam Vital Signs: BMI result Body Mass Index 33.0 Telehealth Telehealth Telehealth Platform: Telephone Location of provider rendering services: practice address Location of patient: address on file Patient Identification confirmed using: Name, : Yes Telehealth method: voice only Patient verbally consented to treatment: Yes Patient verbally consented to billing insurance company: Yes Patient informed of any privacy concerns related to visit: Yes Minutes spent on Phone/Video with Pt.: 20 Assessment & Plan Assessment & Plan (1) Gastric band malfunction: Code(s): K95.09 - Other complications of gastric band procedure Category: Medical Plan: 1) Plan for lap band removal and accessories given her history of chronic vomiting and GERD. The operation will be performed laparoscopically. Usually it is an outpatient procedure. Risks of bleeding, infection, bowel obstructions, respiratory or cardiac complications and VTE were discussed with the patient and she is in agreement with the plan. 2) As of Saturday01/04/25 please stop food and bars and continue with 3 Celebrate Rebuild protein shakes (ONE scoop each in 8oz almond milk) at 7am-9am, 10am-12pm and 1pm-3pm and two more shakes with TWO scoops EACH in 12oz almond milk at 4pm- 6pm and 7pm-9pm. 4) Avoid any aspirin, motrin, ibuprofen, advil, aleve, naproxen, excedrin and meloxicam. You may use Tylenol 5) Continue your medications but do not take any the day of surgery 6) Do your preoperative blood work any day between Saturday01/04/25 and Saturday01/08/25 7) Continue to send me weight measurements weekly 8) To be scheduled for EGD to assess for gastric band erosion. The possibility of biopsies was discussed. Patient needs to avoid use of NSAIDs and aspirin for 1 week prior to EGD. Risks of perforation and bleeding was discussed with the patient. This will be an outpatient procedure with IV sedation. Orders: Orders Type and Screen Today Z01.818 - Encounter for other preprocedural examination Partial Thromboplastin Time Today Z01.818 - Encounter for other preprocedural examination Complete Blood Count Auto Diff Today Z01.818 - Encounter for other preprocedural examination Prothrombin Time INR Today Z01.818 - Encounter for other preprocedural examination Comprehensive Met. Panel Today Z01.818 - Encounter for other preprocedural examination Medications: New ondansetron Only use if you have nausea 4 mg PO Q12H 20 tabs 0RF nausea and vomiting R11.0 - Nausea
[2024-12-31 16:02] VITALS: BMI 33.0
== END 2024-12-31 16:17 | disposition home or self-care (01) ==
LOC: HO.HBS 14:45
PROVIDERS: PCP Internal Medicine; Visit Provider Surgery
DX: K95.09 Other complications of gastric band procedure (principal)
CPT/HCPCS: 99499

== ENCOUNTER → 2024-12-31 14:45 | Outpatient (BNVA) | payer OTHER, SELFPAY | PROVIDERS: PCP Internal Medicine; Visit Provider Surgery ==

== ENCOUNTER 2025-01-05 12:17 | Day surgery (SDC) | payer OTHER, SELFPAY ==
--- NOTE | 2025-01-04 08:50 | HO.ANESPROP2 ---
HPI - Anesthesia Eval Consult details Narrative: 59yo F Upper Endoscopy PMFSH Active Problems Active Problems: All Active Problems Gastric band malfunction (Acute) Preprocedural examination (Acute) Vitamin D deficiency (Acute) Gastric outlet obstruction (Acute) Hx of laparoscopic gastric banding (Acute) Aspiration pneumonitis (Acute) Hiatal hernia (Acute) Pulmonary nodules (Acute) Pneumonitis (Acute) Past Medical History Medical History Aspiration pneumonitis Hiatal hernia Pulmonary nodules Pneumonitis GERD (gastroesophageal reflux disease) Anxiety Family History Family History Mother Heart problem Father Diabetes Parkinsons Heart problem Daughter No problems noted. Son No problems noted. Daughter No problems noted. Surgical History Surgical History Hx of colonoscopy Hx of bladder endoscopy Hx of section Hx of cholecystectomy Hx of laparoscopic gastric banding H/O bariatric surgery Social History Social History Alcohol intake: current Alcohol intake frequency: holidays/special occasions only Patient Tobacco Use Status: Current everyday Tobacco user Tobacco use type: Cigarette Cigarette Packs Per Day: 0.5 Cigarettes Per Day: 10.0 Use of substances other than those prescribed or required for medical reasons: No Advance Directives: No Advance Directives Information Provided: Yes Meds Allergies Allergy/AdvReac Type Severity Reaction Status Date / Time No Known Allergies Allergy Verified 01/05/25 13:24 Home Medications ?Medication ?Instructions ?Recorded ?Confirmed ?Last Taken ?Type clonazepam 1 mg tablet mg PO 08/27/24 12/31/24 Unknown History levothyroxine 50 mcg capsule 50 mcg PO DAILY 12/11/24 01/05/25 Unknown History Assessment and Plan Assessment Anesthesia Assessment: Chart Reviewed
[2025-01-05 13:26] VITALS: BP 127/57; PULSE 64; RESP 16; TEMP 36.6; O2SAT 97; BMI 32.9
[2025-01-05] MEDS: Lactated Ringers 1,000 ML 100 ML IVCONT (13:37)
--- NOTE | 2025-01-05 13:40 | P.HPSUR_ITS ---
Pre-Procedural Eval Section A - 24 Hr Update-Section A only Date of Service: 01/05/25 The patient is an INPATIENT: No The patient has been examined within 24 hours of the surgical procedure. The History & Physical has been completed within 30 days and I have reviewed it.: Yes Section B - Complete if H&P > 30 days Chief Complaint: Lap band malfunction Relevant Family History (Specify if Yes): No Relevant Social History: None Present Medications: None Medical History: No relevant PMH History of Previous Operations: Relevant previous surgery/procedure and date(s) (Lap gastric band) Allergies: Allergies Allergy/AdvReac Type Severity Reaction Status Date / Time No Known Allergies Allergy Verified 01/05/25 13:24 Review of Systems Sugical H&P ROS: Negative: Constitution, Cardiovascular, Respiratory, Neurolo gical, Psychiatric, Hem-Onc, Allergic/Immunologic, Gastrointestinal, Genitourinary, Musculoskeletal, Integumentary, Endocrine and Eyes/Ears/Nose/Throat Exam Surgical H&P Exam: Normal: HEENT, Normal: Heart, Normal: Lungs, Normal: Extremities, Normal: Abdomen, Normal: Skin and Normal: Neurological Plan Diagnosis/Plan: Unchanged (EGD to assess etiology of GERD and to rule band erosion. Risks of bleeding and perforation were discussed with the patient and she is in agreement with the plan.) I have reviewed the history and physical and performed a pertinent physical examination on my patient. No changes have occurred unless specified. Time Spent With Patient Time: Total time managing care of this patient today ____ minutes.
--- NOTE | 2025-01-05 13:45 | P.BOP_ITS ---
Brief Operative Note Date of Service: 01/05/25 Pre-op diagnosis: Gastric band malfunction Post-op diagnosis: same Procedure: PREOPERATIVE DIAGNOSIS: GERD, nausea/vomiting, s/p lap band POSTOPERATIVE DIAGNOSIS: ?Same as above. Gastric band prolapse PROCEDURE: [id number] with biopsies Surgeon: ?Clarence Hood M.D.. Ph.D. Studio Operations Manager: None ? Anesthesia: IV sedation Estimated blood loss: ?Minimal FINDINGS AND PROCEDURE: ? OPERATIVE INDICATIONS: ?The patient is a 59 year old female known to me who underwent a laparoscopic gastric band elsewhere. The patient had insufficient weight loss so far and has been complaining of GERD. Based on this information I recommended an upper endoscopy to evaluate the patient's symptoms and rule out band erosion before we remove the lap band. Risks and complications of the surgery were discussed with the patient in advance particularly the possibility of perforation or bleeding that may require surgical intervention. The patient understood the risks and was in agreement with the plan. ? PROCEDURE: After informed consent was obtained by the patient, the patient was ?transferred to the Operating Room and was placed in the supine position.? After successful induction of IV sedation, a mouth block was inserted and the patient was placed in the left lateral decubitus position. An upper endoscopy was performed next, the oropharynx and esophagus appeared within the normal limits. There was no hiatal hernia. The z-line was smooth.? The stomach was entered and it appeared to be of normal size. There was no band erosion, ?gastritis and no ulcer. The band however seens to be in a position lower than it should or the pouch over the band has significantly dilated from chronic obstruction. The scope was advanced into the duodenum which appeared to be normal as well. Retroflexion was performed and again no band erosion was seen. At that point the duodenum and the stomach were decompressed and the scope was withdrawn from the patient's mouth. The patient was awaken and was transferred in stable condition to the Recovery Room for further care. I was present and performed all steps of the procedure. There were no residents to assist with this case. Clarence Hood M.D., Ph.D. Surgeon: Steve Hood MD Anesthesia: MAC Was an Studio Operations Manager used for this Procedure?: No Estimated blood loss (mL): 0 IV fluids (mL): 400 Urine output (mL): 0 (No [place] to record output) Pathology: other (1) GE junction x2 2) Distal esophagus x2 3) Proximal stomach x1 4) Distal antrum x1) Condition: stable Disposition: PACU
[2025-01-05 14:20] VITALS: BP 113/65; PULSE 79; RESP 18; TEMP 36.2; O2SAT 96
[2025-01-05 14:32] VITALS: BP 108/59; PULSE 71; RESP 18; TEMP 36.7; O2SAT 99
[2025-01-05 14:47] VITALS: BP 117/67; PULSE 63; RESP 18; O2SAT 99
== END 2025-01-05 15:09 | disposition home or self-care (01) ==
PROVIDERS: PCP Internal Medicine; Visit Provider Surgery
PROC: 0DJ08ZZ Inspection of Upper Intestinal Tract, Via Natural or Artificial Opening Endoscopic (ICD-10-PCS; CPT 43235; principal; 2025-01-05 13:50)
DX: K95.09 Other complications of gastric band procedure (principal); K21.9 Gastro-esophageal reflux disease without esophagitis; R11.2 Nausea with vomiting, unspecified; K44.9 Diaphragmatic hernia without obstruction or gangrene; F41.9 Anxiety disorder, unspecified; R91.8 Other nonspecific abnormal finding of lung field; J69.0 Pneumonitis due to inhalation of food and vomit; Z79.899 Other long term (current) drug therapy; Z90.49 Acquired absence of other specified parts of digestive tract; Z98.84 Bariatric surgery status; F17.210 Nicotine dependence, cigarettes, uncomplicated
CPT/HCPCS: 43239; 88305; J2003; J2250; J2704

== ENCOUNTER 2025-01-14 08:43 | Day surgery (SDC) | payer OTHER, SELFPAY ==
[2025-01-04 09:44] LABS: MANUAL DIFF FLAG NO
[2025-01-04 10:37] LABS: Basophils Absolute Auto 0.1 X10*3/uL (0.0-0.2); Basophils Percent Auto 1.3 % (0-2); Eosinophils Absolute Auto 0.1 X10*3/uL (0.0-0.4); Eosinophils Percent Auto 1.1 % (0-4); Hematocrit 39.9 % (37.0-47.0); Hemoglobin 13.6 g/dl (12.0-16.0); Imm Gran Abs Auto 0.01 X10*3/uL (0.00-0.03); Imm Gran Pct Auto 0.2 % (0.0-0.4); Lymphocytes Absolute Auto 1.6 X10*3/uL (1.2-4.9); Lymphocytes Percent Auto 34.8 % (20-40); Mean Corpuscular HGB Conc 34.1 g/dl (31.0-35.0); Mean Corpuscular Hemoglobin 30.4 pg (27.0-33.0); Mean Corpuscular Volume 89.3 fL (80.0-98.0); Mean Platelet Volume 10.1 fL (9.4-12.3); Monocytes Absolute Auto 0.3 X10*3/uL (0.1-1.2); Monocytes Percent Auto 6.7 % (2-11); Neutrophils Absolute Auto 2.6 x10*3/uL (2.0-8.3); Neutrophils Percent Auto 55.9 % (45-73); Platelet Count 241 X10*3/uL (160-400); Red Blood Count 4.47 X10*6/uL (4.20-5.50); Red Cell Distribution Width 11.6 % (11.0-16.0); White Blood Count 4.6 X10*3/uL (4.8-10.8)
[2025-01-04 10:47] LABS: INTERNATIONAL NORM RATIO 0.9 (0.9-1.1); Prothrombin Time 10.1 SEC (10.9-12.4)
[2025-01-04 13:09] LABS: Alanine Aminotransferase 23 U/L (0-31); Albumin Level 4.2 g/dL (3.5-5.0); Alkaline Phosphatase 63 U/L (39-117); Anion Gap 14 (12-20); Aspartate Amino Transferase 27 U/L (5-31); Bilirubin Total 0.5 mg/dL (0.0-1.0); Blood Urea Nitrogen 15 mg/dL (9-16); Calcium 9.3 mg/dL (8.4-10.2); Carbon Dioxide 26 mmol/L (22-29); Chloride 105 mmol/L (96-108); Estimated Glomerular Filt Rate > 60; Glucose Random 91 mg/dL (60-115); Sodium 141 mmol/L (135-145); Total Protein 7.3 g/dL (6.5-8.0)
[2025-01-12 12:00] VITALS: BMI 32.9
--- NOTE | 2025-01-13 08:49 | P.CONAN_ITS ---
Documented by User: Alessandra Goodman NP 01/13/25 08:51 HPI - Anesthesia Eval Consult details Narrative: 59yo F for PMFSH Active Problems Active Problems: All Active Problems Gastric band malfunction (Acute) Preprocedural examination (Acute) Vitamin D deficiency (Acute) Gastric outlet obstruction (Acute) Hx of laparoscopic gastric banding (Acute) Aspiration pneumonitis (Acute) Hiatal hernia (Acute) Pulmonary nodules (Acute) Pneumonitis (Acute) Past Medical History Medical History delivery delivered Aspiration pneumonitis Hiatal hernia Pulmonary nodules Pneumonitis GERD (gastroesophageal reflux disease) Anxiety Family History Family History Mother Heart problem Father Diabetes Parkinsons Heart problem Daughter No problems noted. Son No problems noted. Daughter No problems noted. Surgical History Surgical History Hx of colonoscopy Hx of bladder endoscopy Hx of section Hx of cholecystectomy Hx of laparoscopic gastric banding H/O bariatric surgery Social History Social History Alcohol intake: current Alcohol intake frequency: holidays/special occasions only Patient Tobacco Use Status: Current everyday Tobacco user Tobacco use type: Cigarette Cigarette Packs Per Day: 0.5 Cigarettes Per Day: 10 Meds Allergies Allergy/AdvReac Type Severity Reaction Status Date / Time No Known Allergies Allergy Verified 01/05/25 13:24 Home Medications ?Medication ?Instructions ?Recorded ?Confirmed ?Last Taken ?Type clonazepam 1 mg tablet mg PO 08/27/24 12/31/24 Unknown History levothyroxine 50 mcg capsule 50 mcg PO DAILY 12/11/24 01/05/25 Unknown History Exam Height,Weight and Vital Signs: Height 5 ft 6.5 in Weight 93.894 kg Pertinent Lab Results Pertinent Lab Results: Laboratory Tests 01/04/25 01/04/25 09:40 09:43 WBC 4.6 L RBC 4.47 Hgb 13.6 Hct 39.9 MCV 89.3 MCH 30.4 MCHC 34.1 RDW 11.6 Plt Count 241 MPV 10.1 Immature Gran % (Auto) 0.2 Neut % (Auto) 55.9 Lymph % (Auto) 34.8 [place] % (Auto) 6.7 Eos % (Auto) 1.1 Baso % (Auto) 1.3 Lymph # (Auto) 1.6 [place] # (Auto) 0.3 Eos # (Auto) 0.1 Baso # (Auto) 0.1 Abs Immat Gran (auto) 0.01 Absolute Neuts (auto) 2.6 Absolute Nucleated RBC 0.000 Nucleated RBC % (auto) 0.0 PT 10.1 L INR 0.9 APTT 28.0 Sodium 141 Potassium 4.0 Chloride 105 Carbon Dioxide 26 Anion Gap 14 BUN 15 Creatinine 0.75 Estim Creat Clear Calc TNP Estimated GFR > 60 Random Glucose 91 Calcium 9.3 D Total Bilirubin 0.5 AST 27 ALT 23 Alkaline Phosphatase 63 Total Protein 7.3 Albumin 4.2 Blood Type B Positive Antibody Screen NEGATIVE Narrative Narrative: EKG 12/2024 Vent. Rate : 76 BPM Atrial Rate : 76 BPM P-R Int : 132 ms QRS Dur : 84 ms QT Int : 408 ms P-R-T Axes : 63 62 45 degrees QTcB Int : 459 ms Normal sinus rhythm Normal ECG When compared with ECG of 08-Sep-2020 00:29, No significant change was found [place] barium swallow with air 11/2024 IMPRESSION: 1. Very patulous esophagus 2. Mild granular appearance of the esophageal mucosa, suggestive of esophagitis. 3. Small type I hiatal hernia. 4. Status post placement of a lap band. There is no evidence of slippage of the band. There is a high grade stricture present in the fundus of the stomach due to the presence of the lap band. 5. Thickened appearance of the gastric rugal folds, suggestive of gastritis. Assessment and Plan Assessment Anesthesia Assessment: Chart Reviewed Documented by User: Chani Saleh MD 01/14/25 13:24 HPI - Anesthesia Eval Consult details Narrative: 59yo F for Laparoscopic Lap band removal PMFSH Active Problems Active Problems: All Active Problems Gastric band malfunction (Acute) Preprocedural examination (Acute) Vitamin D deficiency (Acute) Gastric outlet obstruction (Acute) Hx of laparoscopic gastric banding (Acute) Aspiration pneumonitis (Acute) Hiatal hernia (Acute) Pulmonary nodules (Acute) Pneumonitis (Acute) Smoker. Last cigarette 2 days ago Past Medical History Medical History delivery delivered Aspiration pneumonitis Hiatal hernia Pulmonary nodules Pneumonitis GERD (gastroesophageal reflux disease) Anxiety Family History Family History Mother Heart problem Father Diabetes Parkinsons Heart problem Daughter No problems noted. Son No problems noted. Daughter No problems noted. Family history of problems with anesthesia: No Surgical History Surgical History Hx of colonoscopy Hx of bladder endoscopy Hx of section Hx of cholecystectomy Hx of laparoscopic gastric banding H/O bariatric surgery History of Problems with Anesthesia: No Social History Social History Alcohol intake: current Alcohol intake frequency: holidays/special occasions only Patient Tobacco Use Status: Current everyday Tobacco user Tobacco use type: Cigarette Cigarette Packs Per Day: 0.5 Cigarettes Per Day: 10 Meds Allergies Allergy/AdvReac Type Severity Reaction Status Date / Time No Known Allergies Allergy Verified 01/05/25 13:24 Home Medications ?Medication ?Instructions ?Recorded ?Confirmed ?Last Taken ?Type clonazepam 1 mg tablet mg PO 08/27/24 12/31/24 Unknown History levothyroxine 50 mcg capsule 50 mcg PO DAILY 12/11/24 01/05/25 Unknown History Exam Height,Weight and Vital Signs: Height 5 ft 6.5 in Weight 93.894 kg Vital Signs Temp Pulse Resp BP Pulse Ox O2 Del Method 01/14/25 10:05 98.0 F 69 16 97/59 L 97 Room Air Airway Mallampati Class: II TM Dist: >3cm Neck ROM: Full Loose/Missing/Broken Teeth: Yes (Missing some molars. Denies broken or loose teeth) Heart: RRR Lungs: CTAB Assessment and Plan Assessment Anesthesia Assessment: Anesthesia Plan Discussed and Chart Reviewed Final Anesthetic Review Family History of Problems with Anesthesia: No History of Problems with Anesthesia: No NPO: Yes ASA Class: II Final Preanesthetic Review: No Changes in Pt Med Stat, Meds/Allgs Chart Reviewed, Consent Obtained/Reviewed and Anes Risks/Benef Reviewed Patient Risk: Intermediate Procedure Risk: Intermediate Assessment/Block/Sedation in SS: Assess/Block/Sedation-SS Anesthetic Plan Anesthetic Plan: GA Disposition: Standard PACU
[2025-01-14] VITALS (14 sets, daily range): BP systolic 97–140; BP diastolic 58–76; PULSE 56–71; RESP 16–18; TEMP 36.7–36.8; O2SAT 92–100; BMI 32.2
[2025-01-14] MEDS: Aprepitant 32 MG/4.4 ML VIAL IVPUSH (10:26)
[2025-01-14] MEDS: Lactated Ringers 1,000 ML 100 ML IVCONT (10:26)
--- NOTE | 2025-01-14 11:22 | P.HPSUR_ITS ---
Pre-Procedural Eval Section A - 24 Hr Update-Section A only Date of Service: 01/14/25 The patient is an INPATIENT: No The patient has been examined within 24 hours of the surgical procedure. The History & Physical has been completed within 30 days and I have reviewed it.: Yes Section B - Complete if H&P > 30 days Chief Complaint: Lap band malfunction Relevant Family History (Specify if Yes): No Relevant Social History: None Present Medications: None Medical History: No relevant PMH History of Previous Operations: Relevant previous surgery/procedure and date(s) (Lap band procedure) Allergies: Allergies Allergy/AdvReac Type Severity Reaction Status Date / Time No Known Allergies Allergy Verified 01/05/25 13:24 Review of Systems Sugical H&P ROS: Negative: Constitution, Cardiovascular, Respiratory, Neuro logical, Psychiatric, Hem-Onc, Allergic/Immunologic, Gastrointestinal, Genitourinary, Musculoskeletal, Integumentary, Endocrine and Eyes/Ears/Nose/Throat Exam Surgical H&P Exam: Normal: HEENT, Normal: Heart, Normal: Lungs, Normal: Extremities, Normal: Abdomen, Normal: Skin and Normal: Neurological Plan Diagnosis/Plan: Unchanged I have reviewed the history and physical and performed a pertinent physical examination on my patient. No changes have occurred unless specified. Time Spent With Patient Time: Total time managing care of this patient today ____ minutes.
--- NOTE | 2025-01-14 11:26 | P.BOP_ITS ---
Brief Operative Note Date of Service: 01/14/25 Pre-op diagnosis: Lap band malfunction Post-op diagnosis: same Procedure: PROCEDURE: Esophago-gastroscopy, laparoscopic lysis of adhesions, laparoscopic band removal and accessories INDICATIONS: This is a 59 year-old female with a BMI of 33.9 kg/m2 and associated comorbid conditions as described previously. The patient has been experiencing frequent episodes of vomiting and food intolerance. As a result, the patient was electively scheduled for laparoscopic, possibly open gastric band removal. The risks and complications of the procedure were discussed with the patient in advance, particularly the possibility of ; pulmonary embolism; infection, gastric leak, bleeding; GERD; cardiac, pulmonary, or renal complications. The patient understood all the risks, and was in agreement to angie sepulveda with surgery. DESCRIPTION OF PROCEDURE: After informed consent was obtained from the patient, the patient was given preoperative antibiotics, and was transferred to the operating room. After s uccessful induction of general anesthesia, pneumatic compressive devices were placed on both lower extremities. An upper endoscopy was performed next. The oropharynx and esophagus appeared to be within normal limits. There was no diaphragmatic hernia present. The stomach was entered. Then after all fluid and air were suctioned and the stomach was fully decompressed, the scope was withdrawn and secured in the mid esophagus. The patient was then prepped and draped in the usual sterile manner, and abdominal access was established at the right upper quadrant with the Gonzales technique. A 12 mm blunt port was inserted, and the abdomen was insufflated with CO2 to a pressure of 15 mmHg. Under direct visualization, additional ports were placed, specifically two 5 mm Versi-step ports to the left upper quadrant, and a 5 mm Versi-Step port to the right upper quadrant. 1% lidocained plan was used to infiltrate all port sites as well as all fascia defects. Following that, the patient was placed in a steep reverse Trendelenburg position. An additional 5 mm port was placed to the right flank for the Mediflex retractor that was used to retract the left lobe of the liver. There were adhesions in the abdomen from previous lap band involving the stomach and the undersurface of the left lobe of the liver. Those were lysed completely with the ultrasonic device. The patient has a lap gastric band. It was identified and using the Thunderbeat, the capsule was opened and the band was freed from surrounding tissues. Once it was adequately mobile, it was cut and was removed from the Gonzales port along with the intra-abdominal portion of the tubing system. This was quite difficult as the tubing system was embedded in the liver capsule. ?An upper endoscopy was performed. There was no narrowing at the GE junction. The scope was easily advanced all the way to the pylorus which was clearly visualized. There was no narrowing anywhere. There was no evidence of ischemia, bleeding or dehiscence. At that point the gastroscope was withdrawn from the patient?s mouth while we were decompressing the bowel and the stomach from any remaining air. There was no bleeding from the liver, spleen, or short gastric vessels. The Mediflex retractor was removed, and the undersurface of the liver was inspected and there was no bleeding. The patient was placed in supine position. The band's port was removed from the same incision I made for the Gonzales port. Using cautery the subcutaneous tissues were divided until the port was identified. The sutures were cut. The remaining tubing system was delivered first and then slowly the four hooks were detached from the fascia and the port with tubing system were retrieved intact. I closed the fascial defect of the 12 mm port site with a figure of eight #1 Polysorb suture. Then 30cc Ropivacaine plain with 10 mg of Dexamethasone were used to infiltrate the fascial closure as well as all skin incisions. At this point, the abdomen was deflated, all ports were removed under direct vision, and no bleeding was noted from any of the port sites. The skin incisions were irrigated with saline and were closed with 4-0 absorbable monofilament sutures. Steri-Strips and OpSites were used to cover all incisions. The patient was extubated and was transferred in stable condition to the recovery room for further care. I was present and performed all hollis parts of the procedure. Margaret Kaur was the airline pilot/first officer. There were no residents to assist with this case. Clarence Hood MD, PhD, FACS Surgeon: Steve Hood MD Anesthesia: GETA, local and other (TAP block) Was an City Sanitarian used for this Procedure?: No City Sanitarian: Paige Kaur Estimated blood loss (mL): 50 IV fluids (mL): 2,000 Urine output (mL): 0 (No Beverly to record output) Pathology: other (Gastric band, tubing and port) Condition: stable Disposition: PACU
[2025-01-14] MEDS: Haloperidol Lactate 5 MG/ML VIAL 1 MG IVPUSH (14:22)
[2025-01-14] MEDS: droPERidol 5 MG/2 ML VIAL 0.625 MG IVPUSH (15:03)
[2025-01-14] MEDS: HYDROmorphone HCl 0.5 MG/0.5 ML SYRINGE 0.25 MG IVPUSH ×4 (15:05→15:40)
== END 2025-01-14 16:00 | disposition home or self-care (01) ==
PROVIDERS: PCP Internal Medicine; Visit Provider Surgery
PROC: (CPT 43774; principal; 2025-01-14 11:40)
DX: K95.09 Other complications of gastric band procedure (principal); K91.0 Vomiting following gastrointestinal surgery; K90.49 Malabsorption due to intolerance, not elsewhere classified; K66.0 Peritoneal adhesions (postprocedural) (postinfection); Y83.8 Other surgical procedures as the cause of abnormal reaction of the patient, or of later complication, without mention of misadventure at the time of the procedure; Y73.8 Miscellaneous gastroenterology and urology devices associated with adverse incidents, not elsewhere classified; F41.9 Anxiety disorder, unspecified; R91.8 Other nonspecific abnormal finding of lung field; Z79.899 Other long term (current) drug therapy; Z98.84 Bariatric surgery status; F17.210 Nicotine dependence, cigarettes, uncomplicated
CPT/HCPCS: 43774; 36415; 80053; 85025; 85610; 85730; 86850; 86900; 86901; 88300; C9145; J0131; J0690; J0737; J1100; J1171; J1630; J1790; J2003; J2250; J2371; J2405; J2704; J2795; J3010

== ENCOUNTER → 2025-01-14 08:43 | Outpatient (BNV) | payer OTHER, SELFPAY | PROVIDERS: PCP Internal Medicine; Visit Provider Surgery | DX: K95.09 Other complications of gastric band procedure (principal); K31.1 Adult hypertrophic pyloric stenosis | CPT/HCPCS: 43774 ==

== ENCOUNTER → 2025-01-20 08:45 | Outpatient (BNVA) | payer OTHER, SELFPAY | PROVIDERS: PCP Internal Medicine; Visit Provider Physician Assistant Surgical ==

== ENCOUNTER 2025-01-20 08:54 | Outpatient (AMB) | payer OTHER, SELFPAY ==
--- NOTE | 2025-01-20 08:46 | A.OFFVIS_ITS ---
VS Expanded 01/20/25 08:50 BP 127/57 L Blood Pressure Location Rt brachial Blood Pressure Position Sitting Pulse 81 Pulse Source Pulse Oximeter Temp 97.2 F Temperature Source Temporal Artery Scan Pulse Oximetry 95 Oxygen Delivery Method Room Air Height 5 ft 6.5 in Weight 202 lb 9.6 oz BMI 32.2 Intake Visit Reasons: OV PO LSG 01/14/25 Allergies No Known Allergies Allergy (Verified 01/20/25 08:51) HPI Comments Details: Patient is a pleasant 59-year-old female who is 6 days post lap band removal performed on 01/14/2025. She reports overall doing well. She has been tolerating her meal plan as directed by Dr. Hood. She has been wearing her abdominal binder. She has moved her bowels. Denies any significant complaints at today's appointment. [facility] Medical History delivery delivered Aspiration pneumonitis Hiatal hernia Pulmonary nodules Pneumonitis GERD (gastroesophageal reflux disease) Anxiety Surgical History Hx of colonoscopy Hx of bladder endoscopy Hx of section Hx of cholecystectomy Hx of laparoscopic gastric banding H/O bariatric surgery Family History Mother Heart problem Father Diabetes Parkinsons Heart problem Daughter No problems noted. Son No problems noted. Daughter No problems noted. Social History Alcohol intake: current Alcohol intake frequency: holidays/special occasions only Patient Tobacco Use Status: Current everyday Tobacco user Tobacco use type: Cigarette Cigarette Packs Per Day: 0.5 Cigarettes Per Day: 10 Physical Exam Vital Signs: Last Vital Signs Temp 97.2 F 01/20/25 08:50 Pulse 81 01/20/25 08:50 BP 127/57 L 01/20/25 08:50 Pulse Ox 95 01/20/25 08:50 Oxygen Delivery Method Room Air 01/20/25 08:50 BMI result Body Mass Index 32.2 GI Inspection: Yes incision (Clean, dry, intact.) Assessment & Plan Assessment & Plan (1) Hx of laparoscopic gastric banding: Code(s): Z98.84 - Bariatric surgery status Category: Surgical Plan: Status post removal of gastric band performed on 01/14/2025. She will continue to communicate with Dr. Hood. Continue her meal plan. Discussed the importance of consistent exercise. She has been using her walking pad during the day and does have a treadmill in her basement. Recommend speed of 3.2 with an incline of 0-5 or 6. Goal is burning 300 calories or more per day. Return to clinic 1 month.
[2025-01-20 08:50] VITALS: BP 127/57; PULSE 81; TEMP 36.2; O2SAT 95; BMI 32.2
== END 2025-01-20 09:14 | disposition home or self-care (01) ==
PROVIDERS: PCP Internal Medicine; Visit Provider Physician Assistant Surgical
DX: Z98.84 Bariatric surgery status (principal)
CPT/HCPCS: 99024

== ENCOUNTER 2025-02-22 08:44 | Outpatient (AMB) | payer OTHER, SELFPAY ==
--- NOTE | 2025-02-22 08:53 | A.OFFVIS_ITS ---
VS Expanded 02/22/25 08:54 BP 110/62 Blood Pressure Location Rt brachial Blood Pressure Position Sitting Pulse 86 Pulse Source Pulse Oximeter Temp 96.7 F L Temperature Source Temporal Artery Scan Pulse Oximetry 97 Oxygen Delivery Method Room Air Height 5 ft 6.5 in Weight 216 lb 6 oz BMI 34.4 Body Fat % 36 Body Fat Mass 59 Fat Free Mass 105.2 Visceral Fat Rating 9. Body Water % 45.4 Body Water Mass 74.6 Muscle Mass/Score 99.8 Basal Metabolic Rate/Score 1,429 Intake Visit Reasons: OV Lap Band Removal 01/14/25 Photograph Editor Required: No Allergies No Known Allergies Allergy (Verified 02/22/25 08:52) Medication List - Last Reconciled 02/22/25 by RALPH Rosas cholecalciferol (vitamin D3) 125 mcg PO DAILY clonazepam 1 mg PO PRN esomeprazole magnesium (Nexium) 40 mg PO DAILY levothyroxine 75 mcg PO DAILY HPI Comments Details: Patient is a pleasant 59-year-old female who returns to the office today in follow-up. She is approximately 1 month post lap band removal on 01/14/2025. Weight today is 216.6 lb with a BMI of 34.4. She states it is unless being seen, she experienced emotional trauma as her fiance relapsed and she broke off the engagement. She did turned to food as a source of comfort. She has since reconnected in has been talking with her behavioral health therapist. She additionally recently bought shakes and bars to now adhere to a more structured meal plan and exercise plan. She has not been following the meal plan for the last 2.5 weeks Meal plan: Celebrate rebuild, food Exercise plan: walking treadmill or outside. treadmill at home none in the last 2-3 weeks [facility] Medical History delivery delivered Aspiration pneumonitis Hiatal hernia Pulmonary nodules Pneumonitis GERD (gastroesophageal reflux disease) Anxiety Surgical History Hx of colonoscopy Hx of bladder endoscopy Hx of section Hx of cholecystectomy Hx of laparoscopic gastric banding H/O bariatric surgery Family History Mother Heart problem Father Diabetes Parkinsons Heart problem Daughter No problems noted. Son No problems noted. Daughter No problems noted. Social History Alcohol intake: current Alcohol intake frequency: holidays/special occasions only Patient Tobacco Use Status: Current everyday Tobacco user Tobacco use type: Cigarette Cigarette Packs Per Day: 0.5 Cigarettes Per Day: 10 Physical Exam Vital Signs: Last Vital Signs Temp 96.7 F L 02/22/25 08:54 GI Inspection: Yes incision (Clean, dry, intact.) Assessment & Plan Assessment & Plan (1) Gastric band malfunction: Code(s): K95.09 - Other complications of gastric band procedure Category: Medical Plan: Patient had a setback as she experienced emotional trauma. She is texting with Dr. Hood and will get a new meal plan. She has been encouraged to resume her exercise routine. She will continue to communicate with her behavioral health therapist. We will have her return to the office in a proximally 3-4 weeks.
[2025-02-22 08:54] VITALS: BP 110/62; PULSE 86; TEMP 35.9; O2SAT 97; BMI 34.4
== END 2025-02-22 09:28 | disposition home or self-care (01) ==
LOC: HO.HBS 08:45
PROVIDERS: PCP Internal Medicine; Visit Provider Physician Assistant Surgical
DX: K95.09 Other complications of gastric band procedure (principal)
CPT/HCPCS: 99024

== ENCOUNTER → 2025-02-22 08:44 | Outpatient (BNVA) | payer OTHER, SELFPAY | PROVIDERS: PCP Internal Medicine; Visit Provider Physician Assistant Surgical ==

== ENCOUNTER 2025-06-25 14:14 | Outpatient (AMB) | payer OTHER, SELFPAY ==
--- NOTE | 2025-06-25 14:30 | A.OFFVIS_ITS ---
VS Expanded 06/25/25 14:38 BP 143/66 H Blood Pressure Location Rt brachial Blood Pressure Position Sitting Pulse 74 Pulse Source Pulse Oximeter Temp 97.4 F Temperature Source Temporal Artery Scan Pulse Oximetry 96 Oxygen Delivery Method Room Air Height 5 ft 6.5 in Weight 237 lb 6.4 oz BMI 37.7 Body Fat % 42.7 Body Fat Mass 101.2 Fat Free Mass 136.0 Visceral Fat Rating 13.0 Body Water % 40.7 Body Water Mass 96.6 Muscle Mass/Score 129.2 Basal Metabolic Rate/Score 1,882 Intake Visit Reasons: OV Lap Band Removal 01/14/25 Nurse Behavioral Health Care Required: No Allergies No Known Allergies Allergy (Verified 06/25/25 14:35) Medication List - Last Reconciled 06/25/25 by RALPH Rosas cholecalciferol (vitamin D3) 125 mcg PO DAILY clonazepam 1 mg PO PRN esomeprazole magnesium (Nexium) 40 mg PO DAILY levothyroxine 100 mcg PO DAILY HPI Comments Details: Patient is a pleasant 59-year-old female who returns to the office today in follow-up. She is approximately 5 months post lap band removal on 01/14/2025. Weight today is 237.4 lb with a BMI of 37.7. She states she has gained a proximally 20 lb as she has been binge eating due to emotional trauma of her partner dying. previously using celebrate rebuild. wakes at 6 am and bed at 10 pm dinner 6 pm Meal plan: Celebrate rebuild, food Exercise plan: walking treadmill or outside. treadmill at home none in the last 2-3 weeks PFSH Medical History delivery delivered Aspiration pneumonitis Hiatal hernia Pulmonary nodules Pneumonitis GERD (gastroesophageal reflux disease) Anxiety Surgical History Hx of colonoscopy Hx of bladder endoscopy Hx of section Hx of cholecystectomy Hx of laparoscopic gastric banding H/O bariatric surgery Family History Mother Heart problem Father Diabetes Parkinsons Heart problem Daughter No problems noted. Son No problems noted. Daughter No problems noted. Social History Alcohol intake: current Alcohol intake frequency: holidays/special occasions only Patient Tobacco Use Status: Current everyday Tobacco user Tobacco use type: Cigarette Cigarette Packs Per Day: 0.5 Cigarettes Per Day: 10 Physical Exam Vital Signs: Last Vital Signs Temp 97.4 F 06/25/25 14:38 Pulse 74 06/25/25 14:38 BP 143/66 H 06/25/25 14:38 Pulse Ox 96 06/25/25 14:38 Oxygen Delivery Method Room Air 06/25/25 14:38 BMI result Body Mass Index 37.7 Const General: healthy appearing and no acute distress Resp Effort & Inspection: normal respiratory effort Auscultation: clear to auscultation bilaterally Cardio Rate: regular rate Rhythm: regular rhythm GI Auscultation: normal bowel sounds Extrem General: Yes normal to inspection Assessment & Plan Assessment & Plan (1) Hx of laparoscopic gastric banding: Code(s): Z98.84 - Bariatric surgery status Category: Surgical Plan: Patient continues the grieving process. She her fiance . She continues to work with her behavioral health therapist. She is looking to restart her weight loss program. Must quit smoking Based upon waking at 06:00 and going to bed at 10 with dinner at 6: Celebrate rebuild 2 scoops in 8-10 oz unsweetened almond milk or water at 7-9 Another shake with 1 scoop at11-1 Celebrate protein bar at 3-5 Meal at 6 with 8 forks protein and 8 forks vegetables Another shake with 1 scoop at [id number] Discussed the importance of exercise. She has a treadmill at home as well as a stationary bike. Goal of burning 350 calories daily. Return to clinic 3-4 weeks.
[2025-06-25 14:38] VITALS: BP 143/66; PULSE 74; TEMP 36.3; O2SAT 96; BMI 37.7
== END 2025-06-25 15:29 | disposition home or self-care (01) ==
LOC: HO.HBS 14:14
PROVIDERS: PCP Internal Medicine; Visit Provider Physician Assistant Surgical
DX: E66.9 Obesity, unspecified (principal); Z68.37 Body mass index [BMI] 37.0-37.9, adult; Z98.84 Bariatric surgery status
CPT/HCPCS: 99213; G2211

== ENCOUNTER 2025-07-21 13:00 | Outpatient (AMB) | payer OTHER, SELFPAY ==
--- NOTE | 2025-07-21 13:02 | MHC.OFFVISWM ---
VS Expanded 07/21/25 13:04 Height 5 ft 6.5 in Weight 227 lb 8 oz BMI 36.2 Intake Visit Reasons: TV Lap Band Removal 01/14/25 Allergies No Known Allergies Allergy (Verified 06/25/25 14:35) HPI Comments Details: Patient is a pleasant 59-year-old female who returns to the office today in follow-up. She is approximately 6 months post lap band removal on 01/14/2025. Weight today is 227.8 lb with a BMI of 36.2. She states she is following her meal plan but having cheat days. Not doing the protein bar. She is sleeping better. She states she is food though obsessed adn is trying to avoid the cravings. Recommended Meal plan: Based upon waking at 06:00 and going to bed at 10 with dinner at 6: Celebrate rebuild 2 scoops in 8-10 oz unsweetened almond milk or water at 7-9 Another shake with 1 scoop at 11-1 Meal at 3-4 pm with 8 forks protein and 8 forks vegetables celebrate protein bar 5-7 Another shake with 1 scoop at 730-930 Exercise plan: walking treadmill or outside. treadmill in the morning and stationary bike at night at home 6 days per week 380 calories total PFSH Medical History delivery delivered Aspiration pneumonitis Hiatal hernia Pulmonary nodules Pneumonitis GERD (gastroesophageal reflux disease) Anxiety Surgical History Hx of colonoscopy Hx of bladder endoscopy Hx of section Hx of cholecystectomy Hx of laparoscopic gastric banding H/O bariatric surgery Family History Mother Heart problem Father Diabetes Parkinsons Heart problem Daughter No problems noted. Son No problems noted. Daughter No problems noted. Social History Alcohol intake: current Alcohol intake frequency: holidays/special occasions only Patient Tobacco Use Status: Current everyday Tobacco user Tobacco use type: Cigarette Cigarette Packs Per Day: 0.5 Cigarettes Per Day: 10 Telehealth Telehealth Telehealth Platform: Telephone Location of provider rendering services: practice address Location of patient: address on file Patient Identification confirmed using: Name, : Yes Telehealth method: voice only Patient verbally consented to treatment: Yes Patient verbally consented to billing insurance company: Yes Patient informed of any privacy concerns related to visit: Yes Minutes spent on Phone/Video with Pt.: 15 Assessment & Plan Assessment & Plan (1) Hx of laparoscopic gastric banding: Code(s): Z98.84 - Bariatric surgery status Category: Surgical Plan: Patient has a proximally six-month post band removal. She has been having food cravings and we will initiate Zepbound 2.5 mg weekly. She was made aware of the potential side effects and we will alert the office if she experiences any of these. Additionally, we will change her meal plan slightly: Based upon waking at 06:00 and going to bed at 10 with dinner at 6: Celebrate rebuild 2 scoops in 8-10 oz unsweetened almond milk or water at 7-9 Another shake with 1 scoop at 11-1 Meal at 3-4 pm with 8 forks protein and 8 forks vegetables Another shake with 1 scoop at 6-8, may have half cup fresh berries if she wishes Encouraged to continue exercise as she has been doing. We will have her return to the office for follow-up phone call Medications: New tirzepatide (weight loss) (Zepbound) for 4 weeks 2.5 mg (0.5 mL) subcut QWEEK 2 mL 0RF
[2025-07-21 13:04] VITALS: BMI 36.2
== END 2025-07-21 13:23 | disposition home or self-care (01) ==
LOC: HO.HBS 13:05
PROVIDERS: PCP Internal Medicine; Visit Provider Physician Assistant Surgical
DX: E66.9 Obesity, unspecified (principal); Z68.36 Body mass index [BMI] 36.0-36.9, adult; Z98.84 Bariatric surgery status
CPT/HCPCS: 98013

== ENCOUNTER 2025-08-23 14:04 | Outpatient (AMB) | payer OTHER, SELFPAY ==
--- NOTE | 2025-08-23 13:59 | A.OFFVIS_ITS ---
VS Expanded 08/23/25 14:09 Height 5 ft 6.5 in Weight 237 lb BMI 37.7 Intake Visit Reasons: TV Lap Band Removal 01/14/25 Allergies No Known Allergies Allergy (Verified 06/25/25 14:35) Medication List - Last Reconciled 08/23/25 by RALPH Gilbert cholecalciferol (vitamin D3) 125 mcg PO DAILY clonazepam 1 mg PO PRN esomeprazole magnesium (Nexium) 40 mg PO DAILY levothyroxine 100 mcg PO DAILY tirzepatide (weight loss) (Zepbound) 2.5 mg (0.5 mL) subcut QWEEK HPI Comments Details: This?is a?59?yo F who is s/p lap band 01/2025. Presents for 7 month post op visit. Notes she has gained 35lb since lap band removed. No complaints of nausea, emesis, abdominal pain or reflux, or constipation. Zepbound still in process. Another doctor of hers ordered an antidepressant for her but she did not take it. Present meal plan includes: -given at last visit Celebrate rebuild 2 scoops in 8-10 oz unsweetened almond milk or water at 7-9 Another shake with 1 scoop at 11-1 Meal at 3-4 pm with 8 forks protein and 8 forks vegetables Another shake with 1 scoop at 6-8, may have half cup fresh berries if she wishes continues to snack off plan due to her partner passing away in March Exercise routine includes: walks every day [facility] Medical History delivery delivered Aspiration pneumonitis Hiatal hernia Pulmonary nodules Pneumonitis GERD (gastroesophageal reflux disease) Anxiety Surgical History Hx of colonoscopy Hx of bladder endoscopy Hx of section Hx of cholecystectomy Hx of laparoscopic gastric banding H/O bariatric surgery Family History Mother Heart problem Father Diabetes Parkinsons Heart problem Daughter No problems noted. Son No problems noted. Daughter No problems noted. Social History Alcohol intake: current Alcohol intake frequency: holidays/special occasions only Patient Tobacco Use Status: Current everyday Tobacco user Tobacco use type: Cigarette Cigarette Packs Per Day: 0.5 Cigarettes Per Day: 10 Telehealth Telehealth Telehealth Platform: Telephone Location of provider rendering services: other Location of patient: address on file Patient Identification confirmed using: Name, : Yes Telehealth method: voice only Patient verbally consented to treatment: Yes Patient verbally consented to billing insurance company: Yes Patient informed of any privacy concerns related to visit: Yes Minutes spent on Phone/Video with Pt.: 18 Assessment & Plan Assessment & Plan (1) Hx of laparoscopic gastric banding: Code(s): Z98.84 - Bariatric surgery status Category: Medical (2) Obesity: Code(s): E66.9 - Obesity, unspecified Category: Medical Plan I did discuss the option of self-pay for Zepbound with pt. She will consider this if unable to get approved from insurance. She recognizes her food habits are not conducive to weight loss. Will discuss next appt once decision made on Zepbound approval- will text pt with updates.
[2025-08-23 14:09] VITALS: BMI 37.7
== END 2025-08-23 14:12 | disposition home or self-care (01) ==
LOC: HO.HBS 14:04
PROVIDERS: PCP Internal Medicine; Visit Provider Physician Assistant Surgical
DX: E66.9 Obesity, unspecified (principal); Z68.37 Body mass index [BMI] 37.0-37.9, adult; Z98.84 Bariatric surgery status
CPT/HCPCS: 98013